=== PATIENT | male | born 1940 | race Caucasian/White ===

== ENCOUNTER → 2018-09-11 | Outpatient (CLI) | payer MEDICARE ==
[~2018-09-11] MED LIST: ACETAMINOPHEN650 M5; ANTIBIOTIC; APAP500 PO; ASPIRIN325; CIPROFLOXACIN500 M1 PO; ENDOCET 5-3251 EACH; GLUCOPHAGE500 MG PO; NORCO 7.5-3251 EACH; OXYCODONE HCL5 M1; PROSCAR 5MG TABL5 M1 PO; SIMVASTATIN80 MG PO; TAMSULOSIN HCL0.4 MG PO; XARELTO10 M1
== END ==
LOC: M.CT 13:20
DX: N13.2 Hydronephrosis with renal and ureteral calculous obstruction (principal); N13.4 Hydroureter

== ENCOUNTER 2020-02-15 14:10 | Emergency (ER) | payer MEDICARE ==
[~2020-02-15] VITALS: Ht 182.9 cm; Wt 97.5 kg
[2020-02-15] MEDS ORDERED: VITAMIN D310 MC4 PO (14:21)
[2020-02-15] MEDS ORDERED: KRILL OIL500 MG PO (14:21)
[2020-02-15] MEDS ORDERED: ZINC30 M1 PO (14:21)
[2020-02-15] MEDS ORDERED: MULTIVITAMINS1 EAC7 PO (14:21)
[2020-02-15 14:26] LABS: URINE BILIRUBIN NEGATIVE (Negative); URINE BLOOD NEGATIVE (Negative); URINE CLARITY CLEAR; URINE COLOR YELLOW; URINE GLUCOSE-RANDOM NEGATIVE (Negative); URINE KETONES NEGATIVE (Negative); URINE LEUKOCYTES-REFLEX NEGATIVE (Negative); URINE NITRITE-REFLEX NEGATIVE (Negative); URINE PROTEIN NEGATIVE (Negative); URINE UROBILINOGEN 0.2 E.U./dl (0.2-1.0)
[2020-02-15 14:59] LABS: ABSOLUTE EOSINOPHILS 0.2 thou/uL (0.0-0.7); ABSOLUTE LYMPHOCYTES 1.1 thou/uL (0.8-5.3); ABSOLUTE MONOCYTES 0.5 thou/uL (0.0-1.2); ABSOLUTE NEUTROPHILS 3.2 thou/uL (1.6-8.1); BASOPHILS 0.7 %; EOSINOPHILS 3.9 %; HEMATOCRIT 43.1 % (42.0-52.0); HEMOGLOBIN 14.6 gm/dL (14.0-18.0); MCH 31.8 pg (26.0-34.0); MCHC 33.8 g/dL (28.0-37.0); MCV 94.2 fL (80.0-100.0); MONOCYTES 9.9 %; MPV 7.9 fl. (7.2-11.1); NUCLEATED RBCS 0 /100WBC; PLATELET COUNT* 191 thou/uL (150-400); POLYS 63.5 %; RBC 4.58 mil/uL (4.50-6.00); RDW-CV 13.8 % (10.5-14.5)
[2020-02-15 15:07] LABS: CALCIUM 8.6 mg/dL (8.5-10.1)
[2020-02-15 15:11] LABS: ALBUMIN 3.5 g/dL (3.4-5.0); TOTAL BILIRUBIN 0.3 mg/dL (<0.1-1.0); TOTAL PROTEIN 6.4 g/dL (6.4-8.2)
[2020-02-15 16:25] VITALS: BP 130/63
--- NOTE | 2020-02-16 09:09 | EKG ---
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 : 1940 Requested By: Gisella Bennett Order Number: [id number] MD: Alphonse Jay Measurements Intervals [place] Rate: 64 P: 33 VA: 158 QRS: 81 QRSD: 104 T: 44 QT: 414 QTc: 427 Interpretive Statements Sinus rhythm Borderline right axis deviation Compared to ECG 05/30/2012 17:20:51 no change Electronically Signed On 02-16-2020 9:09:33 VIDEO SURVEILLANCE TECHNICIAN by Alphonse Jay [email or web address] <ELECTRONICALLY SIGNED> By: Alphonse Jay MD, [facility] 02/16/20 0909 1448 1448 Alphonse Jay MD, [facility] /EPI
== END 2020-02-15 16:26 | disposition home or self-care (01) ==
LOC: M.ERS 14:10
PROVIDERS: Nurse Practitioner Family
DX: K80.20 Calculus of gallbladder without cholecystitis without obstruction (principal); N20.0 Calculus of kidney; K76.89 Other specified diseases of liver; E78.5 Hyperlipidemia, unspecified; E11.9 Type 2 diabetes mellitus without complications; E78.00 Pure hypercholesterolemia, unspecified; Z79.899 Other long term (current) drug therapy; Z88.0 Allergy status to penicillin; Z88.6 Allergy status to analgesic agent; Z90.49 Acquired absence of other specified parts of digestive tract

== ENCOUNTER 2020-07-05 01:45 | Observation (INO) | payer MEDICARE ==
[~2020-07-05] VITALS: Ht 182.9 cm; Wt 101.2 kg
--- NOTE | ~2020-07-05 | OP ---
[address] [address] OPERATIVE REPORT Name: MIKEY BARTH Room: [address] Dona Koroma#: [id number] Admission: 07/05/20 Attend Phys: Rose Ramires Discharge: 07/06/20 Date of : 36 Report #: [id number] THIS REPORT FOR: cc: Vipin Lunsford Bradley L. DO Haggard, Kent L MD ~ PREOPERATIVE DIAGNOSIS: A 6 mm mid right ureteral stone. POSTOPERATIVE DIAGNOSES: A 6 mm mid right ureteral stone with urethral stricture disease. PROCEDURE: Cystoscopy, right retrograde pyelogram, right ureteroscopy with holmium laser lithotripsy and endoscopic stone extraction, placement of right ureteral stent with attached string. STAFF SURGEON: Harinder Giron MD SWAT TEAM MEMBER: None. ANESTHESIA: General. ESTIMATED BLOOD LOSS: 3 mL. COMPLICATIONS: None. SPECIMENS: Right ureteral stone fragments. DRAINS: A 28 cm x 4.8-Swiss right ureteral stent with attached string. INDICATIONS: The patient is a pleasant 79-year-old white male with history of kidney stones, who presented with acute onset right flank pain. CT scan documented a 6 mm mid right ureteral stone. He was counseled on treatment options and elected for definitive cystoscopy, right retrograde pyelogram, right ureteroscopy, possible holmium laser lithotripsy, possible placement of right ureteral stent. After risks and benefits of the procedure explained, p consent was obtained. DESCRIPTION OF PROCEDURE: The patient was taken to the operating room, comfortably placed in a dorsal lithotomy position under adequate general anesthesia. He was sterilely prepped and draped in sterile fashion, exposing only the genitalia. The patient received antibiotic therapy as prescribed. Appropriate timeout was carried out and all were in agreement. A 22-Swiss cystoscope was placed into the urethra, anterior urethra normal, sphincter intact down to the bulbous urethra where there appeared to be stricture present. I was able to put gentle pressure and dilated through the strictured area. He had some TURP defect in his prostate, some mild regrowth. Bladder was surveyed, [place] [address] OPERATIVE REPORT Name: MIKEY BARTH José Room: [address] Dona Koroma#: [id number] Admission: 07/05/20 Attend Phys: Rose Ramires Discharge: 07/06/20 Date of : 36 Report #: [id number] very patulous, large amount of fluid in his bladder was drained. The bladder was surveyed with both 30 and 70-degree angle lenses. No bladder calculi seen, or foreign body. Marked trabeculation was identified. An 8-Swiss cone tipped catheter placed in the right orifice and a retrograde pyelogram performed showed an abrupt ____ above the iliac vessels about the level of the prior stone seen on CT scan. A 0.035 Glidewire was gently placed up the right ureter at the level of the kidney. The cystoscope was removed and a 4.5 ____ semirigid ureteroscope was advanced through the urethra and gently placed up the right ureter ____ multiple fragments ____ 1.9 Swiss nitinol basket was used to grab the main fragment and gently remove it intact without difficulty. Repeat ureteroscopy was carried out, ureteroscope placed back to the urethra through the prostate up the mid ureter ____ stone. No sign of injury to the ureter. No residual fragments remained. The ureteroscope was removed. Cystoscope backloaded over the guidewire. A 28 cm x 4.8-Swiss ureteral stent was then placed in position with good coil in the renal pelvis and good coil in the bladder, cystoscope was removed. String was left attached, and secured to the outside of the phallus with Tegaderm. He was extubated in the operating room, transferred to [facility] with assistance and went to recovery room in stable condition. We will have him remove the stent on Friday. Follow up in our office in 6 weeks with a renal ultrasound and a KUB. By: 1350 [id number] Giron MD /rambo
[~2020-07-05 01:45] MED LIST changes: -APAP500 PO; +KRILL OIL500 MG PO; +SUPER THERAVIT1 EACH PO; +TYLENOL EXTRA500 MG PO; +VITAMIN D310 MC4 PO; +ZINC30 M1 PO
[2020-07-05 01:49] VITALS: BP 163/70
[2020-07-05 02:01] LABS: URINE BILIRUBIN NEGATIVE (Negative); URINE BLOOD TRACE (Negative); URINE CLARITY CLEAR; URINE COLOR YELLOW; URINE GLUCOSE-RANDOM NEGATIVE (Negative); URINE KETONES NEGATIVE (Negative); URINE LEUKOCYTES-REFLEX NEGATIVE (Negative); URINE NITRITE-REFLEX NEGATIVE (Negative); URINE PROTEIN NEGATIVE (Negative); URINE SPECIFIC GRAVITY >= 1.030 (1.005-1.030); URINE UROBILINOGEN 0.2 E.U./dl (0.2-1.0)
[2020-07-05 02:21] LABS: ABSOLUTE BASOPHILS 0.1 thou/uL (0.0-0.2); ABSOLUTE EOSINOPHILS 0.2 thou/uL (0.0-0.7); ABSOLUTE LYMPHOCYTES 1.3 thou/uL (0.8-5.3); ABSOLUTE MONOCYTES 0.8 thou/uL (0.0-1.2); ABSOLUTE NEUTROPHILS 8.5 thou/uL (1.6-8.1); BASOPHILS 0.8 %; EOSINOPHILS 1.4 %; HEMATOCRIT 47.3 % (42.0-52.0); HEMOGLOBIN 15.5 gm/dL (14.0-18.0); LYMPHOCYTES 11.9 %; MCH 30.1 pg (26.0-34.0); MCHC 32.8 g/dL (28.0-37.0); MONOCYTES 7.1 %; MPV 7.9 fl. (7.2-11.1); NUCLEATED RBCS 0 /100WBC; PLATELET COUNT* 211 thou/uL (150-400); POLYS 78.8 %; RBC 5.14 mil/uL (4.50-6.00); RDW-CV 14.3 % (10.5-14.5); WBC 10.8 thou/uL (4.0-11.0)
[2020-07-05 02:25] LABS: CALCIUM 9.5 mg/dL (8.5-10.1); CREATININE 1.3 mg/dL (0.6-1.3); POTASSIUM 4.5 mmol/L (3.5-5.1)
[2020-07-05 04:30] VITALS: BP 142/58
[2020-07-05 05:00] VITALS: BP 132/67
--- NOTE | 2020-07-05 07:00 | NUR ---
PT ARRIVED ONTO UNIT AT APPROX 0430 FROM ER. ALERT AND ORIENTED. PLEASANT. O2 2L NC. UP AD GIA. C/O PAIN TO RIGHT FLANK. PAIN MEDS GIVEN. NAUSEA WAS BETTER CONTROLLED AT THIS TIME. IV NS AT 100 CC/HR TO RIGHT AC. NPO. DENIES ANY DIFFICULTY VOIDING. ADMISSION ASSESSMENT COMPLETED. CALL LIGHT IN REACH.
[2020-07-05 08:11] VITALS: BP 116/56
--- NOTE | 2020-07-05 13:05 | NUR ---
1020-VIOLA WITH UROLOGY CONTACTED THIS NURSE TO ADVISE PATIENT WILL NOT BE HAVING SURGERY UNTIL 07/06, THAT HE MAY EAT AND WILL BE NPO AFTER MIDNIGHT.
--- NOTE | 2020-07-05 13:35 | NUR ---
Pt is A&O. Resides at home with . Independent. No DME. No hx of HH or SNF. Goal is home at dc, no needs anticipated. Surgery tomorrow for stone removal. Possible dc post surgery tomorrow.
[2020-07-05 17:17] VITALS: BP 129/59
--- NOTE | 2020-07-05 19:29 | NUR ---
PATIENT HAS REMAINED A&OX4, PLEASANT AND COOPERATIVE WITH CARES THIS SHIFT. PATIENT HAS DENIED ANY PAIN/NAUSEA. MEDICATIONS AND FLUIDS ADMINISTERED ORDERED. PATIENT UP AD GIA IN ROOM. CALL LIGHT WITHIN REACH.
[2020-07-05 20:00] VITALS: BP 128/58
[2020-07-06] VITALS: BP 127/64
--- NOTE | 2020-07-06 07:01 | NUR ---
Alert and oriented x 4. He is up independently in the room. He had been not having any pain but it has increased and had pain meds x 3. He had nausea med x 1. He said he is voiding well. Vitals are stable, room air sat 95%. He has slept intermittenly. He has not had anything by mouth since midnight.Pre op called said they would pick him up at 1130.
[2020-07-06] MEDS ORDERED: PHENERGAN 25 MG25 M1 PO (07:46)
[2020-07-06] MEDS ORDERED: NORCO5 PO (07:46)
[2020-07-06 08:08] VITALS: BP 137/72
--- NOTE | 2020-07-06 12:20 | EKG ---
[place] [address] ELECTROCARDIOGRAM REPORT Name: MIKEY BARTH [id number] Admission: 07/05/20 Attend Phys: Mann Fairbanks Discharge: Date of : 36 Date of Service: 07/06/20 1213 Report #: [id number] THIS REPORT FOR: //name// [facility] Test Date: 2020-07-06 Test Time: 12:13:15 Pat Name: MIKEY BARTH Department: Room: [address] Gender: M Records Management Coordinator: : 1940 Requested By: Harinder Giron Order Number: [id number] [id number] MD: Wilmer Velez Measurements Intervals [place] Rate: 67 P: 12 VA: 153 QRS: -14 QRSD: 103 T: 15 QT: 402 QTc: 425 Interpretive Statements Sinus rhythm Compared to ECG 02/15/2020 14:48:54 No significant changes Electronically Signed On 07-06-2020 12:20:01 CDT by Wilmer Velez [email or web address] <ELECTRONICALLY SIGNED> By: Wilmer Velez MD, [facility] 07/06/20 1220 1213 1213 Wilmer Velez MD, [facility] /EPI
[2020-07-06 16:02] VITALS: BP 137/72
[2020-07-06 16:09] VITALS: BP 144/62
[2020-07-06 16:47] VITALS: BP 137/72
--- NOTE | 2020-07-06 16:47 | NUR ---
PATIENT GIVEN DISCHARGE INSTRUCTIONS, INFORMATIONS SHEETS ON NEW PRESCRIPTIONS. PATIENT ABLE TO TOLERATE REGULAR DIET AND HAS DENIED ANY PAIN/NAUSEA SINCE RETURNING FROM PROCEDURE. IV REMOVED. PATIENT LEFT UNIT WITH PERSONAL BELONGINGS VIA W/C ACCOMPANIED BY NURSING STAFF AT APPROX. 1642 TO MEET AT ENTRANCE.
== END 2020-07-06 16:42 | disposition home or self-care (01) ==
LOC: M.ERS 01:45 → M.TBA-ER 03:29 → M.ORTHSURG 04:30
PROVIDERS: Emergency Medicine; ADMIT Internal Medicine; ATTEND Internal Medicine
DX: N20.2 Calculus of kidney with calculus of ureter (principal); Z20.822 Contact with and (suspected) exposure to COVID-19; K80.20 Calculus of gallbladder without cholecystitis without obstruction; M19.90 Unspecified osteoarthritis, unspecified site; E66.9 Obesity, unspecified; E11.9 Type 2 diabetes mellitus without complications; E78.5 Hyperlipidemia, unspecified; Z79.899 Other long term (current) drug therapy; Z68.30 Body mass index [BMI] 30.0-30.9, adult